=== PATIENT | female | born 1995 | race Caucasian/White ===

== ENCOUNTER 2022-08-24 18:45 | Emergency (ER) | payer OTHER ==
[~2022-08-24] VITALS: Ht 165.1 cm; Wt 104.3 kg
[2022-08-24] MEDS ORDERED: ALLERCLEAR10 MG PO (20:00)
== END 2022-08-24 20:11 | disposition home or self-care (01) ==
LOC: ER 18:45
DX: S61.211A Laceration without foreign body of left index finger without damage to nail, initial encounter (principal); W26.8XXA Contact with other sharp object(s), not elsewhere classified, initial encounter; Z79.899 Other long term (current) drug therapy
CPT/HCPCS: 12001; 99282

== ENCOUNTER 2023-01-25 15:44 | Inpatient (IN) | payer OTHER ==
[~2023-01-25] VITALS: Ht 165.1 cm; Wt 126.0 kg
[~2023-01-25 15:44] MED LIST: ALLERCLEAR10 MG PO
[2023-01-25 16:35] LABS: BASOPHILS ABSOLUTE AUTO 0.01 K/mm3 (0.00-0.23); BASOPHILS PERCENT AUTO 0 % (0-2); EOSINOPHILS ABSOLUTE AUTO 0.06 K/mm3 (0.00-0.68); EOSINOPHILS PERCENT AUTO 1 % (0-6); Hematocrit 40.3 % (33.0-51.0); Hemoglobin 13.6 g/dL (11.5-16.0); IMMATURE GRAN ABSOLUTE AUTO 0.01 K/mm3 (0.00-0.10); IMMATURE GRAN PERCENT AUTO 0 % (0-1); LYMPHOCYTES ABSOLUTE AUTO 1.37 K/mm3 (0.84-5.20); LYMPHOCYTES PERCENT AUTO 31 % (21-46); MONOCYTES ABSOLUTE AUTO 0.28 K/mm3 (0.16-1.47); MONOCYTES PERCENT AUTO 6 % (4-13); Mean Corpuscular HGB 30.2 pg (26.0-34.0); Mean Corpuscular HGB Conc 33.7 g/dL (31.5-36.5); Mean Corpuscular Volume 90 fL (80-100); Mean Platelet Volume 11.6 fL (9.1-12.4); NEUTROPHILS ABSOLUTE AUTO 2.63 K/mm3 (1.96-9.15); NEUTROPHILS PERCENT AUTO 60 % (41-73); RDW Coefficient Variation 14.9 % (11.7-14.2); RDW Standard Deviation 49.1 fL (35.1-46.3); White Blood Cell Count 4.36 K/mm3 (4.00-11.30)
[2023-01-25 16:50] LABS: Platelet Count 43 K/mm3 (150-400)
[2023-01-25 17:25] LABS: Albumin, Blood 3.9 g/dL (3.4-5.0); Bun/Creatinine Ratio 27.9 (12.0-20.0); Creatinine, Blood 0.61 mg/dL (0.40-1.00); Globulin, Blood 3.8 g/dL (2.2-4.0); Potassium, Blood 3.8 mmol/L (3.5-5.5); Total Protein, Blood 7.7 g/dL (6.4-8.2)
[2023-01-25] MEDS ORDERED: FLUVOXAMINE MA100 M3 PO (20:57)
[2023-01-25] MEDS ORDERED: BUTALB-ACETAMI1 EAC5 PO (20:58)
[2023-01-25 22:40] LABS: Influenza A, PCR NEGATIVE (NEGATIVE); Influenza B, PCR NEGATIVE (NEGATIVE); Resp Syncytial Virus, PCR NEGATIVE (NEGATIVE); SARS-Cov-2 (COVID-19) PCR, MMC NEGATIVE (NEGATIVE)
--- NOTE | 2023-01-26 05:11 | NUR ---
SHIFT NOTE REVIEVED PATIENT ALERT AND ORIENTED FROM ED, CALM AND COOPERATIVE WITH CARE. NO CARDIAC, REPIRATORY, SKIN, OR NEURO ISSUES NOTED. HERE FOR GI BLEED, NO BM SINCE ADMISSION TO THE FLOOR. CLEAR LIQUID DIET TO CONTINUE. GI CONSULT CALLED IN. IV INFUSING NS AT 75. WILL CONT TO MONITOR.
[2023-01-26 05:28] LABS: BASOPHILS PERCENT AUTO 0 % (0-2); EOSINOPHILS ABSOLUTE AUTO 0.02 K/mm3 (0.00-0.68); EOSINOPHILS PERCENT AUTO 1 % (0-6); Hematocrit 34.7 % (33.0-51.0); Hemoglobin 11.8 g/dL (11.5-16.0); IMMATURE GRAN ABSOLUTE AUTO 0.01 K/mm3 (0.00-0.10); IMMATURE GRAN PERCENT AUTO 0 % (0-1); LYMPHOCYTES ABSOLUTE AUTO 1.44 K/mm3 (0.84-5.20); LYMPHOCYTES PERCENT AUTO 34 % (21-46); MONOCYTES ABSOLUTE AUTO 0.29 K/mm3 (0.16-1.47); MONOCYTES PERCENT AUTO 7 % (4-13); Mean Corpuscular HGB 30.6 pg (26.0-34.0); Mean Corpuscular Volume 90 fL (80-100); Mean Platelet Volume 11.4 fL (9.1-12.4); NEUTROPHILS ABSOLUTE AUTO 2.46 K/mm3 (1.96-9.15); NEUTROPHILS PERCENT AUTO 58 % (41-73); RDW Coefficient Variation 14.8 % (11.7-14.2); RDW Standard Deviation 48.9 fL (35.1-46.3); Red Blood Cell Count 3.85 M/mm3 (3.80-5.20); White Blood Cell Count 4.22 K/mm3 (4.00-11.30)
[2023-01-26 05:50] LABS: Albumin, Blood 3.5 g/dL (3.4-5.0); Albumin/Globulin Ratio 1.1 (0.8-1.8); Bilirubin, Total 1.2 mg/dL (0.1-1.0); Bun/Creatinine Ratio 18.4 (12.0-20.0); Calcium, Blood 8.3 mg/dL (8.5-10.1); Creatinine, Blood 0.71 mg/dL (0.40-1.00); Globulin, Blood 3.3 g/dL (2.2-4.0); Potassium, Blood 3.4 mmol/L (3.5-5.5); Total Protein, Blood 6.8 g/dL (6.4-8.2)
[2023-01-26 06:18] LABS: Platelet Count 38 K/mm3 (150-400)
--- NOTE | 2023-01-26 15:26 | NUR ---
SHIFT SUMMARY PT AWAKE DURING SHIFT REPORT. PLEASANT AND CO-OP. UP INDEPENDENTLY IN RM AND TO BTHRM. PT REPORTED BM DURING SHIFT REPORT; STOOL IN TOILET BROWN WITH SM AMT OF DRK COLOR MIXED IN, POSSIBLY BLACK. PT REPORTED NO LONGER BLACK AND TARRY PREVIOUS. GI CONSULT ORDERED AND CALLED; SEE CHART. DR SANTANA TO SEE PT AFTER PROCEDURES THIS EVENING; PT INFORMED. DR OSMAN UPDATED AND AWARE. IVF'S INFUSING PER EMAR, PT NOW SL. PT'S SPOUSE IN THIS AM AND OFF AND ON THRU OUT THE DAY. NO C/O PAIN. DENIED FURTHER NEEDS AT THIS TIME. CALL LT IN REACH.
[2023-01-26 15:47] LABS: Hematocrit 33.9 % (33.0-51.0); Hemoglobin 11.7 g/dL (11.5-16.0)
--- NOTE | 2023-01-26 16:05 | NUR ---
DR SANTANA JUST IN TO SEE PT. PT TO GO DOWN FOR EGD SOON. PT AWARE, REPORTING NPO SINCE BEFORE LUNCH.
--- NOTE | 2023-01-26 17:04 | NUR ---
Patient up to Ambulate independently. Gait steady. Lungs clear T/O to Auscultation. Patient confirms NPO status and agrees with scheduled surgery. History, Chart, Medications and Allergies reviewed before start of procedure.Patient States Post-Procedure ride home has been arranged.
--- NOTE | 2023-01-26 17:38 | NUR ---
01/26/23 1738 Nadya Chaudhary History, Chart, Medications and Allergies reviewed before start of procedure. 3-LEAD EKG REVIEWED WITH PHYSICIAN PRIOR TO START OF PROCEDURE. MONITOR INTACT WITH CONTINUOUS PULSE OXIMETRY AND INTERMITTENT BP. PATIENT DETERMINED TO BE ASA APPROPRIATE FOR PROPOFOL SEDATION PRIOR TO START OF PROCEDURE BY , REVIEWED CASE WITH DR HARP WHO AGREES PT IS SAFE FOR NURSE SEDATION/ MALLAMPATI CLASS 2 AIRWAY: COMPLETE VISUALIZATION OF THE UVULA.
--- NOTE | 2023-01-27 06:10 | NUR ---
PATIET REMAINS ALERT AND ORIENTED X4, COOPERATIVE WITH CARE. PATIENT WAS ANGRY AND ANXIOUS AT START OF SHUFT, RE POTENTIAL DC. ASSURED PATIENT SHE MIRELLA NOT BE ISHCARDED UNTILL BE KNEW SHE WOUD BE SAFE. IV SL AND SNL. STAFF WILL CONT TO MONITOR.
[2023-01-27 06:15] LABS: Hematocrit 32.2 % (33.0-51.0)
[2023-01-27 06:40] LABS: International Normalized Ratio 1.12; Prothrombin Time Results 11.7 Sec (9.7-11.5)
[2023-01-27 06:48] LABS: Calcium, Blood 8.5 mg/dL (8.5-10.1); Creatinine, Blood 0.62 mg/dL (0.40-1.00); Potassium, Blood 3.9 mmol/L (3.5-5.5)
--- NOTE | 2023-01-27 07:25 | NUR ---
01/27/23 0725 Nadya Chaudhary History, Chart, Medications and Allergies reviewed before start of procedure. 3-LEAD EKG REVIEWED WITH PHYSICIAN PRIOR TO START OF PROCEDURE. MONITOR INTACT WITH CONTINUOUS PULSE OXIMETRY AND INTERMITTENT BP. O2 VIA N/C INTACT THROUGHOUT SEDATION/PROCEDURE. PATIENT DETERMINED TO BE ASA APPROPRIATE FOR PROPOFOL SEDATION PRIOR TO START OF PROCEDURE BY DR. SANTANA.
[2023-01-27 08:34] LABS: BASOPHILS ABSOLUTE AUTO 0.01 K/mm3 (0.00-0.23); BASOPHILS PERCENT AUTO 0 % (0-2); EOSINOPHILS ABSOLUTE AUTO 0.04 K/mm3 (0.00-0.68); EOSINOPHILS PERCENT AUTO 1 % (0-6); Hematocrit 32.1 % (33.0-51.0); Hemoglobin 11.1 g/dL (11.5-16.0); IMMATURE GRAN ABSOLUTE AUTO 0.04 K/mm3 (0.00-0.10); IMMATURE GRAN PERCENT AUTO 1 % (0-1); LYMPHOCYTES ABSOLUTE AUTO 1.28 K/mm3 (0.84-5.20); LYMPHOCYTES PERCENT AUTO 44 % (21-46); MONOCYTES PERCENT AUTO 7 % (4-13); Mean Corpuscular HGB Conc 34.6 g/dL (31.5-36.5); Mean Corpuscular Volume 90 fL (80-100); Mean Platelet Volume 12.9 fL (9.1-12.4); NEUTROPHILS ABSOLUTE AUTO 1.33 K/mm3 (1.96-9.15); NEUTROPHILS PERCENT AUTO 46 % (41-73); RDW Coefficient Variation 14.6 % (11.7-14.2); RDW Standard Deviation 48.3 fL (35.1-46.3); Red Blood Cell Count 3.58 M/mm3 (3.80-5.20)
[2023-01-27 08:37] LABS: Platelet Count 44 K/mm3 (150-400)
--- NOTE | 2023-01-27 17:29 | NUR ---
SHIFT SUMMARY PTN WENT FOR UPPER GI/BANDING THIS AM AND THEY WERE NOT ABLE TO PROCEED DUE TO FOOD IN THE STOMACH. THE PTN HAD BEEN NPO AFTER MIDNIGHT, BUT APPARENTLY DUE TO THE MEDICATION SHE IS ON, PARASTALSIS WAS SLOWED. PTN THIS SHIFT HAS BEEN ON FULL LIQUIDS, BUT WILL BE CLEARS 7 PM, THEN NPO AFTER. PTN BEING EXTREMELY CAUTIOUS THIS SHIFT IN PREPARATION. PROCEDURE SCHEDULED FOR 8:30 AM. FAMILY PRESENT MOST OF DAY. CONTINUE TO FOLLOW.
[2023-01-28 05:28] LABS: Hematocrit 32.6 % (33.0-51.0); Hemoglobin 11.2 g/dL (11.5-16.0); Mean Corpuscular HGB 30.8 pg (26.0-34.0); Mean Corpuscular HGB Conc 34.4 g/dL (31.5-36.5); Mean Corpuscular Volume 90 fL (80-100); RDW Coefficient Variation 14.4 % (11.7-14.2); RDW Standard Deviation 46.5 fL (35.1-46.3); Red Blood Cell Count 3.64 M/mm3 (3.80-5.20); White Blood Cell Count 2.65 K/mm3 (4.00-11.30)
--- NOTE | 2023-01-28 05:37 | NUR ---
PATIENT SLEPT THROUGH THE NIGHT, MADE NO C/O PAIN, OR DARK STOOLS. IV SANDOSTATIN INFUSING AT 25H, IVS WNL. NPO SINCE 1900 YESTERDAY IN PREPARATION FOR MORNING SURGERY. NO OTHER ISSUES TO REPORT.
[2023-01-28 06:22] LABS: Albumin, Blood 3.4 g/dL (3.4-5.0); Anion Gap 3 mmol/L (6-16); Blood Urea Nitrogen 6 mg/dL (8-24); Bun/Creatinine Ratio 9.2 (12.0-20.0); CO2, Blood 26 mmol/L (21-32); Calcium, Blood 8.6 mg/dL (8.5-10.1); Chloride, Blood 110 mmol/L (98-108); Creatinine, Blood 0.65 mg/dL (0.40-1.00); Glomerular Filtration Rate 124 (60-); Glucose, Blood 100 mg/dL (70-99); Magnesium, Blood 2.2 mg/dL (1.6-2.4); Potassium, Blood 3.5 mmol/L (3.5-5.5); Sodium, Blood 139 mmol/L (136-145)
[2023-01-28 07:32] LABS: Platelet Count 44 K/mm3 (150-400)
--- NOTE | 2023-01-28 08:17 | NUR ---
PT TO [facility] FROM MEDICAL FLOOR. SANDOSTATIN INFUSING ON ARRIVAL. + NPO. NO ACTIVE EMESIS. PT DENIES NEEDS. BIALTERAL 20 G NOTED TO AC'S. NSR NOTED ON MONITOR. VS c NORMAL LIMITS. STARTED ON LR PER ORDERS.
--- NOTE | 2023-01-28 09:26 | NUR ---
01/28/23 0926 Rai Urbina HISTORY, CHART, MEDICATIONS AND ALLERGIES REVIEWED BEFORE START OF PROCEDURE. PATIENT CONFIRMS NPO STATUS AND AGREES WITH SCHEDULED PROCEDURE. 3-LEAD EKG REVIEWED WITH PHYSICIAN PRIOR TO START OF PROCEDURE. MONITOR INTACT WITH CONTINUOUS PULSE OXIMETRY,CAPNOGRAPHY, 3-LEAD EKG, INTERMITTENT BP. SUPPLEMENTAL O2 TO BE TITRATED THROUGHOUT PROCEDURE TO MAINTAIN O2 SATURATION ABOVE 90%. PATIENT DETERMINED TO BE ASA APPROPRIATE FOR PROPOFOL SEDATION PRIOR TO START OF PROCEDURE BY DR. SANTANA.
--- NOTE | 2023-01-28 09:49 | NUR ---
DC'D RACT IV SITE DUE TO LEAKING.
--- NOTE | 2023-01-28 19:47 | NUR ---
SHIFT SUMMARY PTN HAD THE UPPER GI WITH BANDING TO VARICIES THIS AM. PTJody WAS DROWSY AFTER RETURNING. BY LUNCH SHE WAS AWAKE AND ABLE TO SWALLOW LIQUID WITHOUT DIFFICULTY. SHE ASKED TO ADVANCE DIET. CONTINUE OCTREATIDE DRIP. CONTINUE TO MONITOR.
--- NOTE | 2023-01-29 04:28 | NUR ---
END OF SHIFT NURSING REPORT - PM Patient is a 27 y/o female admitted for melena x2 days. She is AOX4, independent on daily ADL, and well informed about her health. 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 Continues on octreotide gtt at 25ml/hr and ceftriaxone coverage. Vitals remain WNL, no acute events through the shift, and declines pain. No active GI bleed noted. Am labs collected.
[2023-01-29 04:59] LABS: BASOPHILS PERCENT AUTO 0 % (0-2); EOSINOPHILS ABSOLUTE AUTO 0.02 K/mm3 (0.00-0.68); EOSINOPHILS PERCENT AUTO 1 % (0-6); Hematocrit 32.9 % (33.0-51.0); Hemoglobin 11.5 g/dL (11.5-16.0); IMMATURE GRAN PERCENT AUTO 0 % (0-1); LYMPHOCYTES ABSOLUTE AUTO 1.03 K/mm3 (0.84-5.20); LYMPHOCYTES PERCENT AUTO 39 % (21-46); MONOCYTES ABSOLUTE AUTO 0.18 K/mm3 (0.16-1.47); MONOCYTES PERCENT AUTO 7 % (4-13); Mean Corpuscular HGB 30.9 pg (26.0-34.0); Mean Corpuscular Volume 88 fL (80-100); Mean Platelet Volume 10.5 fL (9.1-12.4); NEUTROPHILS ABSOLUTE AUTO 1.42 K/mm3 (1.96-9.15); NEUTROPHILS PERCENT AUTO 54 % (41-73); RDW Coefficient Variation 14.6 % (11.7-14.2); RDW Standard Deviation 46.6 fL (35.1-46.3); Red Blood Cell Count 3.72 M/mm3 (3.80-5.20); White Blood Cell Count 2.65 K/mm3 (4.00-11.30)
[2023-01-29 05:09] LABS: HBSAG SCREEN Negative (Negative); HCV ANTIBODY Non Reactive (Non Reactive); HEP B CORE AB, TOT Negative (Negative)
[2023-01-29 05:18] LABS: Albumin, Blood 3.5 g/dL (3.4-5.0); Albumin/Globulin Ratio 0.9 (0.8-1.8); Bilirubin, Total 0.8 mg/dL (0.1-1.0); Bun/Creatinine Ratio 8.9 (12.0-20.0); Calcium, Blood 8.4 mg/dL (8.5-10.1); Creatinine, Blood 0.67 mg/dL (0.40-1.00); Globulin, Blood 3.8 g/dL (2.2-4.0); Potassium, Blood 3.8 mmol/L (3.5-5.5); Total Protein, Blood 7.3 g/dL (6.4-8.2)
[2023-01-29 05:29] LABS: Platelet Count 41 K/mm3 (150-400)
--- NOTE | 2023-01-29 08:00 | NUR ---
pt sitting up in a chair working on her computer, a/ox3, pleasant and cooperative with care, follows commands well, denies pain, states she has just a little cramp at the top of her stomach every time she eats but is brief, otherwise feels good, lungs are clear t/o, resp even and unlabored, no cough noted, hrr, no edema noted, ppp+2, cap refill <3s sec, vs stable, afebrile, piv site x2 sites are clear and patent, btx4, abd flat soft nontender, voids without diff, skin c/w/d, maew, up ad janessa, abbie, call light in reach.
--- NOTE | 2023-01-29 18:05 | NUR ---
pt doing well, feels good, states she is going home tomorrow. spouce was at bedside most of the day, no acute changes or needs, call light in reach.
[2023-01-30 07:12] LABS: BASOPHILS PERCENT AUTO 0 % (0-2); EOSINOPHILS ABSOLUTE AUTO 0.07 K/mm3 (0.00-0.68); EOSINOPHILS PERCENT AUTO 2 % (0-6); Hematocrit 34.9 % (33.0-51.0); Hemoglobin 11.9 g/dL (11.5-16.0); IMMATURE GRAN ABSOLUTE AUTO 0.01 K/mm3 (0.00-0.10); IMMATURE GRAN PERCENT AUTO 0 % (0-1); LYMPHOCYTES ABSOLUTE AUTO 1.13 K/mm3 (0.84-5.20); LYMPHOCYTES PERCENT AUTO 28 % (21-46); MONOCYTES ABSOLUTE AUTO 0.32 K/mm3 (0.16-1.47); MONOCYTES PERCENT AUTO 8 % (4-13); Mean Corpuscular HGB 30.6 pg (26.0-34.0); Mean Corpuscular HGB Conc 34.1 g/dL (31.5-36.5); Mean Corpuscular Volume 90 fL (80-100); Mean Platelet Volume 11.3 fL (9.1-12.4); NEUTROPHILS ABSOLUTE AUTO 2.51 K/mm3 (1.96-9.15); NEUTROPHILS PERCENT AUTO 62 % (41-73); RDW Coefficient Variation 14.8 % (11.7-14.2); RDW Standard Deviation 48.3 fL (35.1-46.3); Red Blood Cell Count 3.89 M/mm3 (3.80-5.20); White Blood Cell Count 4.04 K/mm3 (4.00-11.30)
[2023-01-30 07:18] LABS: Platelet Count 44 K/mm3 (150-400)
[2023-01-30 07:28] LABS: Albumin, Blood 3.6 g/dL (3.4-5.0); Bilirubin, Total 0.9 mg/dL (0.1-1.0); Bun/Creatinine Ratio 9.9 (12.0-20.0); Calcium, Blood 8.6 mg/dL (8.5-10.1); Creatinine, Blood 0.71 mg/dL (0.40-1.00); Globulin, Blood 3.6 g/dL (2.2-4.0); Potassium, Blood 4.3 mmol/L (3.5-5.5); Total Protein, Blood 7.2 g/dL (6.4-8.2)
[2023-01-30] MEDS ORDERED: PANT20 PO (12:03)
[2023-01-30] MEDS ORDERED: PROP10 PO (12:04)
[2023-01-30] MEDS ORDERED: SULTRIDS PO (12:08)
== END 2023-01-30 12:20 | disposition home or self-care (01) | DRG 432 ==
LOC: ER 15:44 → MEDS 15:45
PROVIDERS: Emergency Medicine; Family Medicine; Internal Medicine; Internal Medicine Gastroenterology; Physician Assistant; ADMIT Internal Medicine
PROC: 30233R1 Transfusion of Nonautologous Platelets into Peripheral Vein, Percutaneous Approach (ICD-10-PCS; 2023-01-25)
PROC: 0DJ08ZZ Inspection of Upper Intestinal Tract, Via Natural or Artificial Opening Endoscopic (ICD-10-PCS; principal; 2023-01-26 16:15)
PROC: 0DJ08ZZ Inspection of Upper Intestinal Tract, Via Natural or Artificial Opening Endoscopic (ICD-10-PCS; 2023-01-27)
PROC: 06L38CZ Occlusion of Esophageal Vein with Extraluminal Device, Via Natural or Artificial Opening Endoscopic (ICD-10-PCS; 2023-01-28)
DX: K74.60 Unspecified cirrhosis of liver (principal); I85.11 Secondary esophageal varices with bleeding; C91.01 Acute lymphoblastic leukemia, in remission; D69.3 Immune thrombocytopenic purpura; K76.6 Portal hypertension; D61.818 Other pancytopenia; Z68.42 Body mass index [BMI] 45.0-49.9, adult; E87.6 Hypokalemia; K75.81 Nonalcoholic steatohepatitis (NASH); F41.9 Anxiety disorder, unspecified; F32.A Depression, unspecified; F42.9 Obsessive-compulsive disorder, unspecified; D73.1 Hypersplenism; T45.1X5A Adverse effect of antineoplastic and immunosuppressive drugs, initial encounter; E66.9 Obesity, unspecified; I86.4 Gastric varices; K31.89 Other diseases of stomach and duodenum; Z20.822 Contact with and (suspected) exposure to COVID-19; Z79.899 Other long term (current) drug therapy; Z98.890 Other specified postprocedural states; Z92.21 Personal history of antineoplastic chemotherapy
CPT/HCPCS: 0241U; 36415; 80048; 80053; 80069; 82105; 82272; 83735; 85014; 85018; 85025; 85027; 85610; 86317; 86704; 86708; 86803; 86850; 86900; 86901; 87340; 93306; 96374; 96375; 99285-25; A9270; C9113; G0378; J0171; J0696; J2001; J2250; J2354; J2405; J2704; J2765; J7030; J7050; J7120; P9035; P9053

== ENCOUNTER 2023-02-23 08:33 | Day surgery (SDC) | payer OTHER ==
[~2023-02-23] VITALS: Ht 165.1 cm; Wt 116.0 kg
[~2023-02-23 08:33] MED LIST changes: +BUTALB-ACETAMI1 EAC5 PO; +FLUVOXAMINE MA100 M3 PO; +PANT20 PO; +PROP10 PO; +SULTRIDS PO
--- NOTE | 2023-02-23 10:22 | NUR ---
02/23/23 1022 Violet Weeks MONITOR INTACT WITH CONTINUOUS PULSE OXIMETRY, CONTINUOUS END TITAL CO2, AND INTERMITTENT BLOOD PRESSURE. History, Chart, Medications and Allergies reviewed before start of procedure. O2 VIA N/C INTACT THROUGHOUT SEDATION/PROCEDURE.Bite Block Placed See Anesthesia record.
--- NOTE | 2023-02-23 10:48 | NUR ---
REPORT RECEIVED FROM NORA MONTAGUE RN. VSS. PT ABLE TO REPOSITION SELF IN BED. PT REQUESTING PO FLUIDS AND FOOD FOR NAUSEA. PT DENIES OTHER COMPLAINTS AT THIS TIME. AT BEDSIDE.
--- NOTE | 2023-02-23 11:10 | NUR ---
Patient up to Ambulate independently. Gait steady. VSS. Discharge instructions reviewed with patient. Patient verbalizes understanding. Copy given to patient to take home. Patient States Post-Procedure ride home has been arranged. Discharged via wheelchair to private car for ride home. PT BELONGINGS RETURNED TO PT.
== END 2023-02-23 22:44 | disposition home or self-care (01) ==
LOC: ORSCMMR 08:33 → ORD 10:00 → ORSCMMR 10:00
PROVIDERS: Internal Medicine Gastroenterology
PROC: 0DJ08ZZ Inspection of Upper Intestinal Tract, Via Natural or Artificial Opening Endoscopic (ICD-10-PCS; principal; 2023-02-23 10:00)
DX: I85.00 Esophageal varices without bleeding (principal); K76.6 Portal hypertension; K31.89 Other diseases of stomach and duodenum; G47.33 Obstructive sleep apnea (adult) (pediatric); K74.60 Unspecified cirrhosis of liver; K75.81 Nonalcoholic steatohepatitis (NASH); K21.9 Gastro-esophageal reflux disease without esophagitis; Z79.899 Other long term (current) drug therapy
CPT/HCPCS: A9270; J2250; J2704; J7120

== ENCOUNTER → 2023-03-15 | Outpatient (CLI) | payer OTHER | LOC: LAB SHORT 13:04 | DX: R30.0 Dysuria (principal) | CPT/HCPCS: 87077; 87086; 87186 ==

== ENCOUNTER 2023-08-19 07:35 | Emergency (ER) | payer OTHER ==
[~2023-08-19] VITALS: Ht 165.1 cm; Wt 115.7 kg
[2023-08-19 09:28] LABS: Source, Urine Clean Catch
[2023-08-19 09:45] LABS: Appearance, Urine Clear (Clear); Bilirubin, Urine Neg (Neg); Blood, Urine 3+ (Neg); Color, Urine Amber (P-Yellow); Glucose Qualitative, Urine Neg (Neg); Ketones, Urine Neg (Neg); Leukocyte Esterase, Urine Neg (Neg); Nitrite, Urine Neg (Neg); Protein, Urine Neg (Neg); Urobilinogen, Urine NORM (Normal)
[2023-08-19 10:01] LABS: Albumin, Blood 3.8 g/dL (3.4-5.0); Bilirubin, Total 0.6 mg/dL (0.1-1.0); Bun/Creatinine Ratio 15.4 (12.0-20.0); Calcium, Blood 8.6 mg/dL (8.5-10.1); Creatinine, Blood 0.71 mg/dL (0.40-1.00); Globulin, Blood 3.8 g/dL (2.2-4.0); Potassium, Blood 4.1 mmol/L (3.5-5.5); Total Protein, Blood 7.6 g/dL (6.4-8.2)
[2023-08-19 10:01] LABS: Mucus Light (0-Heavy); Squamous Epithelial Cells Few /hpf (Few); White Blood Cells, Urine Not Seen /hpf (0-5)
[2023-08-19 10:02] LABS: Amorphous Light (0-Heavy); Bacteria Rare /hpf
[2023-08-19 10:06] LABS: BASOPHILS ABSOLUTE AUTO 0.01 K/mm3 (0.00-0.23); BASOPHILS PERCENT AUTO 0 % (0-2); EOSINOPHILS ABSOLUTE AUTO 0.06 K/mm3 (0.00-0.68); EOSINOPHILS PERCENT AUTO 1 % (0-6); Hematocrit 37.8 % (33.0-51.0); IMMATURE GRAN ABSOLUTE AUTO 0.02 K/mm3 (0.00-0.10); IMMATURE GRAN PERCENT AUTO 1 % (0-1); LYMPHOCYTES ABSOLUTE AUTO 1.08 K/mm3 (0.84-5.20); LYMPHOCYTES PERCENT AUTO 24 % (21-46); MONOCYTES ABSOLUTE AUTO 0.28 K/mm3 (0.16-1.47); MONOCYTES PERCENT AUTO 6 % (4-13); Mean Corpuscular HGB 30.5 pg (26.0-34.0); Mean Corpuscular HGB Conc 34.4 g/dL (31.5-36.5); Mean Corpuscular Volume 89 fL (80-100); NEUTROPHILS ABSOLUTE AUTO 2.99 K/mm3 (1.96-9.15); NEUTROPHILS PERCENT AUTO 67 % (41-73); RDW Coefficient Variation 15.1 % (11.7-14.2); RDW Standard Deviation 49.2 fL (35.1-46.3); Red Blood Cell Count 4.26 M/mm3 (3.80-5.20); White Blood Cell Count 4.44 K/mm3 (4.00-11.30)
[2023-08-19 10:11] LABS: Mean Platelet Volume 10.7 fL (9.1-12.4); Platelet Count 48 K/mm3 (150-400)
[2023-08-19 10:40] VITALS: BP 123/71
[2023-08-19] MEDS ORDERED: CARVEDILOL3.125 MG PO (10:48)
[2023-08-19] MEDS ORDERED: AMPDEX10 (10:49)
[2023-08-19] MEDS ORDERED: ZEBUTAL 50-3251 EAC1 (10:49)
== END 2023-08-19 11:04 | disposition home or self-care (01) ==
LOC: ER 07:35
PROVIDERS: Student in an Organized Health Care Education/Training Program
DX: N92.0 Excessive and frequent menstruation with regular cycle (principal); D69.6 Thrombocytopenia, unspecified; Z79.899 Other long term (current) drug therapy
CPT/HCPCS: 80053; 81001; 81025; 85025; 85730; 86850; 86900; 86901; 99284

== ENCOUNTER 2023-10-01 00:14 | Emergency (ER) | payer OTHER ==
[~2023-10-01] VITALS: Ht 165.1 cm; Wt 117.9 kg
[~2023-10-01 00:14] MED LIST changes: +AMPDEX10; +CARVEDILOL3.125 MG PO; +ZEBUTAL 50-3251 EAC1
[2023-10-01] MEDS ORDERED: OXYC5 PO (02:35)
[2023-10-01] MEDS ORDERED: Robaxin750 MG PO (04:05)
[2023-10-01 04:12] VITALS: BP 122/76
== END 2023-10-01 04:39 | disposition home or self-care (01) ==
LOC: ER 00:14
DX: M76.32 Iliotibial band syndrome, left leg (principal); Z79.899 Other long term (current) drug therapy
CPT/HCPCS: 73502; 81025; 96372; 99283-25; A9270; J1885

== ENCOUNTER → 2023-11-23 | Outpatient (CLI) | payer OTHER ==
[~2023-11-23] MED LIST changes: +OXYC5 PO; +Robaxin750 MG PO
[2023-11-23 19:15] LABS: Source, Urine Clean Catch
[2023-11-23 20:05] LABS: Bacteria Many /hpf; Hyaline Casts 0-2 /lpf (0-2); Renal Epithelial Rare /hpf (0-Rare); Squamous Epithelial Cells Mod /hpf (Few); Transitional Epithelial Cells Few /hpf (0-Rare); White Blood Cells, Urine 50-100 /hpf (0-5)
== END ==
LOC: LAB SHORT 19:13 → LAB 19:13
PROVIDERS: Family Medicine
DX: N39.0 Urinary tract infection, site not specified (principal)
CPT/HCPCS: 81015; 87077; 87086; 87186

== ENCOUNTER 2024-10-10 08:33 | Day surgery (SDC) | payer OTHER ==
[2024-10-09 14:58] VITALS: BP 124/62
[2024-10-09 15:59] LABS: Hematocrit 21.4 % (33.0-51.0); Hemoglobin 7.3 g/dL (11.5-16.0); Mean Corpuscular HGB 34.3 pg (26.0-34.0); Mean Corpuscular HGB Conc 34.1 g/dL (31.5-36.5); Mean Corpuscular Volume 101 fL (80-100); RDW Standard Deviation 80.2 fL (35.1-46.3); Red Blood Cell Count 2.13 M/mm3 (3.80-5.20)
[2024-10-09 16:20] LABS: Albumin, Blood 3.6 g/dL (3.4-5.0); Albumin/Globulin Ratio 1.5 (0.8-1.8); Bun/Creatinine Ratio 13.5 (12.0-20.0); Calcium, Blood 8.4 mg/dL (8.5-10.1); Creatinine, Blood 0.52 mg/dL (0.40-1.00); Globulin, Blood 2.4 g/dL (2.2-4.0); Potassium, Blood 3.5 mmol/L (3.5-5.5)
[2024-10-09 16:25] LABS: BASOPHILS PERCENT AUTO 0 % (0-2); EOSINOPHILS ABSOLUTE AUTO 0.05 K/mm3 (0.00-0.68); EOSINOPHILS PERCENT AUTO 7 % (0-6); IMMATURE GRAN PERCENT AUTO 0 % (0-1); LYMPHOCYTES ABSOLUTE AUTO 0.06 K/mm3 (0.84-5.20); LYMPHOCYTES PERCENT AUTO 9 % (21-46); MONOCYTES ABSOLUTE AUTO 0.03 K/mm3 (0.16-1.47); MONOCYTES PERCENT AUTO 4 % (4-13); NEUTROPHILS ABSOLUTE AUTO 0.57 K/mm3 (1.96-9.15); NEUTROPHILS PERCENT AUTO 80 % (41-73)
[2024-10-09 16:27] LABS: Platelet Count 8 K/mm3 (150-400); White Blood Cell Count 0.71 K/mm3 (4.00-11.30)
[~2024-10-10 08:33] MED LIST changes: -AMPDEX10; +AMPDEX10 PO; +CARV6.25 PO; -CARVEDILOL3.125 MG PO; +CELE100 PO; +Inderal 20 mg T20 MG PO; +PROMACTA PO; +TRAM50 PO; +[UNRECOGNIZED DRUG - OTHER]
[2024-10-10] MEDS ORDERED: NS 250 ML IV SCH (14:25)
[2024-10-10 16:24] VITALS: BP 107/64
[2024-10-10 16:41] VITALS: BP 101/61
[2024-10-10 17:40] VITALS: BP 105/65
== END 2024-10-10 23:00 ==
LOC: ATC 08:33
PROVIDERS: Nurse Practitioner
DX: C91.02 Acute lymphoblastic leukemia, in relapse (principal); D61.818 Other pancytopenia; F32.A Depression, unspecified; K21.9 Gastro-esophageal reflux disease without esophagitis
CPT/HCPCS: 36430; 36592; 80053; 85025; 86900; 86901; J7050; P9035

== ENCOUNTER 2024-10-15 00:28 | Day surgery (SDC) | payer OTHER ==
[2024-10-13 08:37] VITALS: BP 125/62
[2024-10-13 09:03] LABS: Hematocrit 19.2 % (33.0-51.0); Hemoglobin 6.5 g/dL (11.5-16.0); Mean Corpuscular HGB 33.5 pg (26.0-34.0); Mean Corpuscular HGB Conc 33.9 g/dL (31.5-36.5); Mean Corpuscular Volume 99 fL (80-100); RDW Coefficient Variation 21.3 % (11.7-14.2); RDW Standard Deviation 75.8 fL (35.1-46.3); Red Blood Cell Count 1.94 M/mm3 (3.80-5.20)
[2024-10-13 09:07] LABS: BASOPHILS PERCENT AUTO 0 % (0-2); EOSINOPHILS ABSOLUTE AUTO 0.05 K/mm3 (0.00-0.68); EOSINOPHILS PERCENT AUTO 12 % (0-6); IMMATURE GRAN PERCENT AUTO 0 % (0-1); LYMPHOCYTES ABSOLUTE AUTO 0.04 K/mm3 (0.84-5.20); LYMPHOCYTES PERCENT AUTO 9 % (21-46); MONOCYTES ABSOLUTE AUTO 0.04 K/mm3 (0.16-1.47); MONOCYTES PERCENT AUTO 9 % (4-13); NEUTROPHILS PERCENT AUTO 70 % (41-73)
[2024-10-13 09:10] LABS: Platelet Count 8 K/mm3 (150-400); White Blood Cell Count 0.43 K/mm3 (4.00-11.30)
[2024-10-13 09:22] LABS: Albumin, Blood 3.4 g/dL (3.4-5.0); Albumin/Globulin Ratio 1.3 (0.8-1.8); Bilirubin, Total 1.6 mg/dL (0.1-1.0); Bun/Creatinine Ratio 11.3 (12.0-20.0); Calcium, Blood 8.4 mg/dL (8.5-10.1); Creatinine, Blood 0.53 mg/dL (0.40-1.00); Globulin, Blood 2.7 g/dL (2.2-4.0); Potassium, Blood 3.9 mmol/L (3.5-5.5); Total Protein, Blood 6.1 g/dL (6.4-8.2)
[2024-10-13 13:42] VITALS: BP 118/64
[2024-10-13 13:43] VITALS: BP 118/64
[2024-10-13 14:04] VITALS: BP 104/65
[2024-10-13 15:08] VITALS: BP 107/56
[~2024-10-15 00:28] MED LIST changes: +NS 250 ML IV SCH
[2024-10-15] MEDS ORDERED: NS 250 ML IV SCH (07:15)
[2024-10-15 15:57] VITALS: BP 134/73
[2024-10-15 16:17] VITALS: BP 103/65
[2024-10-15 17:19] VITALS: BP 105/66
[2024-10-15 18:18] LABS: Hemoglobin 7.2 g/dL (11.5-16.0); Mean Corpuscular HGB 33.5 pg (26.0-34.0); Mean Corpuscular HGB Conc 34.3 g/dL (31.5-36.5); Mean Corpuscular Volume 98 fL (80-100); RDW Coefficient Variation 20.5 % (11.7-14.2); RDW Standard Deviation 72.4 fL (35.1-46.3); Red Blood Cell Count 2.15 M/mm3 (3.80-5.20)
[2024-10-15 18:35] LABS: Albumin, Blood 3.3 g/dL (3.4-5.0); Albumin/Globulin Ratio 1.2 (0.8-1.8); Bun/Creatinine Ratio 20.1 (12.0-20.0); Calcium, Blood 8.2 mg/dL (8.5-10.1); Creatinine, Blood 0.45 mg/dL (0.40-1.00); Globulin, Blood 2.8 g/dL (2.2-4.0); Potassium, Blood 3.8 mmol/L (3.5-5.5); Total Protein, Blood 6.1 g/dL (6.4-8.2)
[2024-10-15 18:40] LABS: IMMATURE GRAN PERCENT AUTO 0 % (0-1); White Blood Cell Count 0.46 K/mm3 (4.00-11.30)
[2024-10-15 18:41] LABS: Platelet Count 9 K/mm3 (150-400)
[2024-10-15 18:42] LABS: BASOPHILS PERCENT MAN 0 % (0-2); EOSINOPHILS ABSOLUTE MAN 0.01 K/mm3 (0.00-0.68); EOSINOPHILS PERCENT MAN 4 % (0-6); LYMPHOCYTES ABSOLUTE MAN 0.05 K/mm3 (0.84-5.20); LYMPHOCYTES PERCENT MAN 12 % (21-46); MONOCYTES ABSOLUTE MAN 0.05 K/mm3 (0.16-1.47); MONOCYTES PERCENT MAN 12 % (4-13); NEUTROPHILS ABSOLUTE MAN 0.33 K/mm3 (1.96-9.15); SEG NEUTROPHILS PERCENT MAN 72 % (41-73); TOTAL CELLS COUNTED 25
== END 2024-10-15 18:07 | disposition home or self-care (01) ==
LOC: ATC 00:28
PROVIDERS: Nurse Practitioner
DX: C91.02 Acute lymphoblastic leukemia, in relapse (principal); D61.818 Other pancytopenia; D64.9 Anemia, unspecified; G47.30 Sleep apnea, unspecified; Z88.8 Allergy status to other drugs, medicaments and biological substances; Z79.899 Other long term (current) drug therapy
CPT/HCPCS: 36430; 36592; 80053; 85025; 86850; 86900; 86901; 86920; 86922; J7050; P9016; P9035

== ENCOUNTER 2024-10-21 07:07 | Day surgery (SDC) | payer OTHER ==
[2024-10-20 14:45] VITALS: BP 135/70
[2024-10-20 15:58] LABS: Hemoglobin 8.4 g/dL (11.5-16.0); Mean Corpuscular HGB 32.9 pg (26.0-34.0); Mean Corpuscular HGB Conc 33.6 g/dL (31.5-36.5); Mean Corpuscular Volume 98 fL (80-100); RDW Coefficient Variation 20.4 % (11.7-14.2); RDW Standard Deviation 73.4 fL (35.1-46.3); Red Blood Cell Count 2.55 M/mm3 (3.80-5.20)
[2024-10-20 16:03] LABS: BASOPHILS PERCENT AUTO 0 % (0-2); EOSINOPHILS ABSOLUTE AUTO 0.08 K/mm3 (0.00-0.68); EOSINOPHILS PERCENT AUTO 15 % (0-6); IMMATURE GRAN ABSOLUTE AUTO 0.01 K/mm3 (0.00-0.10); IMMATURE GRAN PERCENT AUTO 2 % (0-1); LYMPHOCYTES ABSOLUTE AUTO 0.04 K/mm3 (0.84-5.20); LYMPHOCYTES PERCENT AUTO 8 % (21-46); MONOCYTES ABSOLUTE AUTO 0.03 K/mm3 (0.16-1.47); MONOCYTES PERCENT AUTO 6 % (4-13); NEUTROPHILS ABSOLUTE AUTO 0.37 K/mm3 (1.96-9.15); NEUTROPHILS PERCENT AUTO 70 % (41-73); Platelet Count 8 K/mm3 (150-400); White Blood Cell Count 0.53 K/mm3 (4.00-11.30)
[2024-10-20 16:22] LABS: Albumin, Blood 3.6 g/dL (3.4-5.0); Albumin/Globulin Ratio 1.2 (0.8-1.8); Bilirubin, Total 2.7 mg/dL (0.1-1.0); Bun/Creatinine Ratio 19.8 (12.0-20.0); Calcium, Blood 8.6 mg/dL (8.5-10.1); Creatinine, Blood 0.5 mg/dL (0.40-1.00); Globulin, Blood 2.9 g/dL (2.2-4.0); Potassium, Blood 3.4 mmol/L (3.5-5.5); Total Protein, Blood 6.5 g/dL (6.4-8.2)
[~2024-10-21 07:07] MED LIST changes: -NS 250 ML IV SCH
[2024-10-21] MEDS ORDERED: NS 250 ML IV SCH (15:00)
[2024-10-21 15:19] VITALS: BP 86/77
[2024-10-21 15:42] VITALS: BP 111/73
[2024-10-21 16:36] VITALS: BP 118/70
== END 2024-10-21 16:39 | disposition home or self-care (01) ==
LOC: ATC 07:07
PROVIDERS: Nurse Practitioner
DX: C91.02 Acute lymphoblastic leukemia, in relapse (principal); D61.818 Other pancytopenia; F32.9 Major depressive disorder, single episode, unspecified; K21.9 Gastro-esophageal reflux disease without esophagitis; Z88.8 Allergy status to other drugs, medicaments and biological substances
CPT/HCPCS: 36430; 36592; 80053; 85025; 86900; 86901; J7050; P9035

== ENCOUNTER 2024-10-24 05:03 | Day surgery (SDC) | payer OTHER ==
[2024-10-23 09:35] VITALS: BP 121/74
[2024-10-23 11:07] LABS: Hematocrit 21.4 % (33.0-51.0); Hemoglobin 7.2 g/dL (11.5-16.0); Mean Corpuscular HGB 32.7 pg (26.0-34.0); Mean Corpuscular HGB Conc 33.6 g/dL (31.5-36.5); Mean Corpuscular Volume 97 fL (80-100); RDW Coefficient Variation 20.9 % (11.7-14.2)
[2024-10-23 11:20] LABS: Platelet Count 9 K/mm3 (150-400); White Blood Cell Count 0.98 K/mm3 (4.00-11.30)
[2024-10-23 11:32] LABS: Albumin, Blood 3.5 g/dL (3.4-5.0); Albumin/Globulin Ratio 1.3 (0.8-1.8); Bilirubin, Total 2.5 mg/dL (0.1-1.0); Bun/Creatinine Ratio 15.2 (12.0-20.0); Calcium, Blood 8.8 mg/dL (8.5-10.1); Creatinine, Blood 0.46 mg/dL (0.40-1.00); Globulin, Blood 2.6 g/dL (2.2-4.0); Potassium, Blood 3.6 mmol/L (3.5-5.5); Total Protein, Blood 6.1 g/dL (6.4-8.2)
[2024-10-23 12:04] LABS: BAND PERCENT MAN 19 % (0-8); BASOPHILS PERCENT MAN 0 % (0-2); EOSINOPHILS ABSOLUTE MAN 0.05 K/mm3 (0.00-0.68); EOSINOPHILS PERCENT MAN 6 % (0-6); LYMPHOCYTES ABSOLUTE MAN 0.02 K/mm3 (0.84-5.20); LYMPHOCYTES PERCENT MAN 3 % (21-46); METAMYELOCYTE PERCENT MAN 1 % (0-0); MONOCYTES ABSOLUTE MAN 0.03 K/mm3 (0.16-1.47); MONOCYTES PERCENT MAN 4 % (4-13); MYELOCYTE PERCENT MAN 1 % (0-0); NEUTROPHILS ABSOLUTE MAN 0.83 K/mm3 (1.96-9.15); SEG NEUTROPHILS PERCENT MAN 66 % (41-73); TOTAL CELLS COUNTED 100
[~2024-10-24 05:03] MED LIST changes: +DiphenhydrAMINE HCL 25 MG Cap PO SCH; +NS 250 ML IV SCH
[2024-10-24] MEDS ORDERED: NS 250 ML IV SCH (06:50)
[2024-10-24] MEDS ORDERED: DiphenhydrAMINE HCL 25 MG Cap PO SCH (10:15)
[2024-10-24 10:24] VITALS: BP 121/70
[2024-10-24 10:44] VITALS: BP 111/65
[2024-10-24 11:39] VITALS: BP 117/69
== END 2024-10-24 11:39 | disposition home or self-care (01) ==
LOC: ATC 05:03
PROVIDERS: Nurse Practitioner
DX: C91.02 Acute lymphoblastic leukemia, in relapse (principal); D61.818 Other pancytopenia; K21.9 Gastro-esophageal reflux disease without esophagitis; F42.9 Obsessive-compulsive disorder, unspecified; Z79.52 Long term (current) use of systemic steroids; Z79.899 Other long term (current) drug therapy; Z88.8 Allergy status to other drugs, medicaments and biological substances
CPT/HCPCS: 36430; 36592; 80053; 85025; 86900; 86901; A9270; J7050; P9035

== ENCOUNTER 2024-10-27 03:50 | Day surgery (SDC) | payer OTHER ==
[~2024-10-27 03:50] MED LIST changes: -DiphenhydrAMINE HCL 25 MG Cap PO SCH; -NS 250 ML IV SCH
[2024-10-27 14:36] VITALS: BP 119/69
[2024-10-27 15:52] LABS: Hematocrit 23.2 % (33.0-51.0); Mean Corpuscular HGB 34.3 pg (26.0-34.0); Mean Corpuscular HGB Conc 34.5 g/dL (31.5-36.5); Mean Corpuscular Volume 100 fL (80-100); RDW Coefficient Variation 21.7 % (11.7-14.2); Red Blood Cell Count 2.33 M/mm3 (3.80-5.20); White Blood Cell Count 1.51 K/mm3 (4.00-11.30)
[2024-10-27 15:58] LABS: Platelet Count 11 K/mm3 (150-400)
[2024-10-27 16:21] LABS: BASOPHILS PERCENT MAN 0 % (0-2); EOSINOPHILS ABSOLUTE MAN 0.24 K/mm3 (0.00-0.68); EOSINOPHILS PERCENT MAN 16 % (0-6); LYMPHOCYTES ABSOLUTE MAN 0.19 K/mm3 (0.84-5.20); LYMPHOCYTES PERCENT MAN 13 % (21-46); MONOCYTES ABSOLUTE MAN 0.04 K/mm3 (0.16-1.47); MONOCYTES PERCENT MAN 3 % (4-13); NEUTROPHILS ABSOLUTE MAN 1.02 K/mm3 (1.96-9.15); SEG NEUTROPHILS PERCENT MAN 68 % (41-73); TOTAL CELLS COUNTED 100
[2024-10-27 16:42] LABS: Albumin, Blood 3.5 g/dL (3.4-5.0); Albumin/Globulin Ratio 1.3 (0.8-1.8); Bilirubin, Total 2.2 mg/dL (0.1-1.0); Bun/Creatinine Ratio 16.9 (12.0-20.0); Calcium, Blood 8.6 mg/dL (8.5-10.1); Creatinine, Blood 0.47 mg/dL (0.40-1.00); Globulin, Blood 2.7 g/dL (2.2-4.0); Potassium, Blood 3.4 mmol/L (3.5-5.5); Total Protein, Blood 6.2 g/dL (6.4-8.2)
== END 2024-10-27 14:53 | disposition home or self-care (01) ==
LOC: ATC 03:50
PROVIDERS: Nurse Practitioner
DX: C91.02 Acute lymphoblastic leukemia, in relapse (principal); K21.9 Gastro-esophageal reflux disease without esophagitis; F42.9 Obsessive-compulsive disorder, unspecified; G43.909 Migraine, unspecified, not intractable, without status migrainosus; Z79.899 Other long term (current) drug therapy; Z88.8 Allergy status to other drugs, medicaments and biological substances
CPT/HCPCS: 36592; 80053; 85025

== ENCOUNTER 2024-10-31 08:55 | Day surgery (SDC) | payer OTHER ==
[2024-10-30 09:28] VITALS: BP 128/73
[2024-10-30 10:18] LABS: BASOPHILS PERCENT AUTO 0 % (0-2); EOSINOPHILS ABSOLUTE AUTO 0.18 K/mm3 (0.00-0.68); EOSINOPHILS PERCENT AUTO 17 % (0-6); Hematocrit 20.7 % (33.0-51.0); Hemoglobin 7.1 g/dL (11.5-16.0); IMMATURE GRAN ABSOLUTE AUTO 0.01 K/mm3 (0.00-0.10); IMMATURE GRAN PERCENT AUTO 1 % (0-1); LYMPHOCYTES ABSOLUTE AUTO 0.08 K/mm3 (0.84-5.20); LYMPHOCYTES PERCENT AUTO 7 % (21-46); MONOCYTES ABSOLUTE AUTO 0.07 K/mm3 (0.16-1.47); MONOCYTES PERCENT AUTO 6 % (4-13); Mean Corpuscular HGB Conc 34.3 g/dL (31.5-36.5); Mean Corpuscular Volume 99 fL (80-100); NEUTROPHILS ABSOLUTE AUTO 0.75 K/mm3 (1.96-9.15); NEUTROPHILS PERCENT AUTO 69 % (41-73); RDW Coefficient Variation 21.2 % (11.7-14.2); RDW Standard Deviation 74.4 fL (35.1-46.3); Red Blood Cell Count 2.09 M/mm3 (3.80-5.20); White Blood Cell Count 1.09 K/mm3 (4.00-11.30)
[2024-10-30 10:22] LABS: Platelet Count 7 K/mm3 (150-400)
[2024-10-30 10:52] LABS: Albumin, Blood 3.5 g/dL (3.4-5.0); Albumin/Globulin Ratio 1.2 (0.8-1.8); Bilirubin, Total 1.7 mg/dL (0.1-1.0); Bun/Creatinine Ratio 18.5 (12.0-20.0); Calcium, Blood 8.8 mg/dL (8.5-10.1); Creatinine, Blood 0.49 mg/dL (0.40-1.00); Globulin, Blood 2.8 g/dL (2.2-4.0); Potassium, Blood 3.5 mmol/L (3.5-5.5); Total Protein, Blood 6.3 g/dL (6.4-8.2)
[2024-10-31] VITALS (8 sets, daily range): BP systolic 102–123; BP diastolic 61–67
[~2024-10-31 08:55] MED LIST changes: +NS 250 ML IV SCH
[2024-10-31 15:15] LABS: Amylase, Blood 36 U/L (25-115)
--- NOTE | 2024-10-31 17:04 | NUR ---
Lab results from today faxed to Dr. Emmanuel's office.
== END 2024-10-31 18:38 | disposition home or self-care (01) ==
LOC: ATC 08:55
PROVIDERS: Nurse Practitioner
DX: C91.02 Acute lymphoblastic leukemia, in relapse (principal); D61.818 Other pancytopenia; F32.9 Major depressive disorder, single episode, unspecified; K21.9 Gastro-esophageal reflux disease without esophagitis; Z79.899 Other long term (current) drug therapy; Z88.8 Allergy status to other drugs, medicaments and biological substances
CPT/HCPCS: 36430; 36592; 80053; 82150; 83690; 85025; 86850; 86900; 86901; 86920; J7050; P9035; P9040

== ENCOUNTER 2024-11-05 05:02 | Day surgery (SDC) | payer OTHER ==
[2024-11-03 11:10] VITALS: BP 121/59
[2024-11-03 12:02] LABS: Hematocrit 25.3 % (33.0-51.0); Hemoglobin 8.6 g/dL (11.5-16.0); Mean Corpuscular HGB 32.6 pg (26.0-34.0); Mean Corpuscular Volume 96 fL (80-100); RDW Coefficient Variation 22.1 % (11.7-14.2); RDW Standard Deviation 74.9 fL (35.1-46.3); Red Blood Cell Count 2.64 M/mm3 (3.80-5.20); White Blood Cell Count 1.78 K/mm3 (4.00-11.30)
[2024-11-03 12:14] LABS: Platelet Count 9 K/mm3 (150-400)
[2024-11-03 12:28] LABS: BAND PERCENT MAN 6 % (0-8); BASOPHILS PERCENT MAN 0 % (0-2); EOSINOPHILS ABSOLUTE MAN 0.24 K/mm3 (0.00-0.68); EOSINOPHILS PERCENT MAN 14 % (0-6); LYMPHOCYTES ABSOLUTE MAN 0.07 K/mm3 (0.84-5.20); LYMPHOCYTES PERCENT MAN 4 % (21-46); MONOCYTES ABSOLUTE MAN 0.03 K/mm3 (0.16-1.47); MONOCYTES PERCENT MAN 2 % (4-13); NEUTROPHILS ABSOLUTE MAN 1.42 K/mm3 (1.96-9.15); SEG NEUTROPHILS PERCENT MAN 74 % (41-73); TOTAL CELLS COUNTED 50
[2024-11-03 12:30] LABS: Albumin, Blood 3.4 g/dL (3.4-5.0); Albumin/Globulin Ratio 1.2 (0.8-1.8); Bilirubin, Total 1.8 mg/dL (0.1-1.0); Bun/Creatinine Ratio 16.2 (12.0-20.0); Calcium, Blood 9.1 mg/dL (8.5-10.1); Creatinine, Blood 0.56 mg/dL (0.40-1.00); Globulin, Blood 2.9 g/dL (2.2-4.0); Potassium, Blood 3.8 mmol/L (3.5-5.5); Total Protein, Blood 6.3 g/dL (6.4-8.2)
--- NOTE | 2024-11-04 13:07 | NUR ---
Pt canceled her appointment today for platlets.
== END 2024-11-05 23:00 | disposition home or self-care (01) ==
LOC: ATC 05:02
PROVIDERS: Nurse Practitioner
DX: C91.02 Acute lymphoblastic leukemia, in relapse (principal); K21.9 Gastro-esophageal reflux disease without esophagitis; F32.A Depression, unspecified; M81.0 Age-related osteoporosis without current pathological fracture; Z79.899 Other long term (current) drug therapy; Z88.8 Allergy status to other drugs, medicaments and biological substances
CPT/HCPCS: 36592; 80053; 85025; 86900; 86901

== ENCOUNTER 2024-11-07 01:19 | Day surgery (SDC) | payer OTHER ==
[2024-11-06 09:52] VITALS: BP 113/74
[2024-11-06 10:48] LABS: Hematocrit 25.1 % (33.0-51.0); Hemoglobin 8.5 g/dL (11.5-16.0); Mean Corpuscular HGB 32.8 pg (26.0-34.0); Mean Corpuscular HGB Conc 33.9 g/dL (31.5-36.5); Mean Corpuscular Volume 97 fL (80-100); RDW Coefficient Variation 21.6 % (11.7-14.2); RDW Standard Deviation 75.1 fL (35.1-46.3); Red Blood Cell Count 2.59 M/mm3 (3.80-5.20)
[2024-11-06 11:08] LABS: Albumin, Blood 3.4 g/dL (3.4-5.0); Albumin/Globulin Ratio 1.3 (0.8-1.8); Bilirubin, Total 1.6 mg/dL (0.1-1.0); Bun/Creatinine Ratio 18.7 (12.0-20.0); Calcium, Blood 8.6 mg/dL (8.5-10.1); Creatinine, Blood 0.48 mg/dL (0.40-1.00); Globulin, Blood 2.7 g/dL (2.2-4.0); Total Protein, Blood 6.1 g/dL (6.4-8.2)
[2024-11-06 11:57] LABS: White Blood Cell Count 0.91 K/mm3 (4.00-11.30)
[2024-11-06 11:58] LABS: Platelet Count 8 K/mm3 (150-400)
[2024-11-06 12:05] LABS: BAND PERCENT MAN 20 % (0-8); BASOPHILS PERCENT MAN 0 % (0-2); EOSINOPHILS ABSOLUTE MAN 0.36 K/mm3 (0.00-0.68); EOSINOPHILS PERCENT MAN 40 % (0-6); MONOCYTES ABSOLUTE MAN 0.03 K/mm3 (0.16-1.47); MONOCYTES PERCENT MAN 4 % (4-13); SEG NEUTROPHILS PERCENT MAN 36 % (41-73); TOTAL CELLS COUNTED 25
[~2024-11-07 01:19] MED LIST changes: -NS 250 ML IV SCH
[2024-11-07] MEDS ORDERED: NS 250 ML IV SCH (06:45)
[2024-11-07 14:40] VITALS: BP 115/71
[2024-11-07 15:22] VITALS: BP 119/66
[2024-11-07 16:02] VITALS: BP 107/60
== END 2024-11-07 16:04 | disposition home or self-care (01) ==
LOC: ATC 01:19
PROVIDERS: Nurse Practitioner
DX: C91.02 Acute lymphoblastic leukemia, in relapse (principal); D61.818 Other pancytopenia; K21.9 Gastro-esophageal reflux disease without esophagitis; G47.30 Sleep apnea, unspecified; M25.572 Pain in left ankle and joints of left foot; S93.402A Sprain of unspecified ligament of left ankle, initial encounter; S90.122A Contusion of left lesser toe(s) without damage to nail, initial encounter; Z79.899 Other long term (current) drug therapy; Z79.52 Long term (current) use of systemic steroids; Z79.85 Long-term (current) use of injectable non-insulin antidiabetic drugs; Z88.8 Allergy status to other drugs, medicaments and biological substances; W01.0XXA Fall on same level from slipping, tripping and stumbling without subsequent striking against object, initial encounter
CPT/HCPCS: 36430; 36592; 73610; 73630; 80053; 85025; 86900; 86901; 99283-25; J7050; P9037

== ENCOUNTER 2024-11-07 11:01 | Emergency (ER) | payer OTHER ==
[~2024-11-07] VITALS: Ht 165.1 cm; Wt 88.5 kg
[2024-11-07 11:12] VITALS: BP 122/72
== END 2024-11-07 14:03 | disposition home or self-care (01) ==
LOC: ER 11:01
DX: S93.402A Sprain of unspecified ligament of left ankle, initial encounter (principal); S90.122A Contusion of left lesser toe(s) without damage to nail, initial encounter; W01.0XXA Fall on same level from slipping, tripping and stumbling without subsequent striking against object, initial encounter; Z79.899 Other long term (current) drug therapy
CPT/HCPCS: 73610; 73630; 99283-25

== ENCOUNTER 2024-11-13 00:51 | Day surgery (SDC) | payer OTHER ==
[2024-11-13 09:31] VITALS: BP 114/66
[2024-11-13 10:12] LABS: Hematocrit 20.1 % (33.0-51.0); Hemoglobin 6.7 g/dL (11.5-16.0); Mean Corpuscular HGB 32.7 pg (26.0-34.0); Mean Corpuscular HGB Conc 33.3 g/dL (31.5-36.5); Mean Corpuscular Volume 98 fL (80-100); RDW Coefficient Variation 22.5 % (11.7-14.2); RDW Standard Deviation 77.8 fL (35.1-46.3); Red Blood Cell Count 2.05 M/mm3 (3.80-5.20); White Blood Cell Count 1.52 K/mm3 (4.00-11.30)
[2024-11-13 10:29] LABS: Platelet Count 10 K/mm3 (150-400)
[2024-11-13 10:30] LABS: Albumin, Blood 3.2 g/dL (3.4-5.0); Albumin/Globulin Ratio 1.2 (0.8-1.8); Bilirubin, Total 1.2 mg/dL (0.1-1.0); Bun/Creatinine Ratio 14.3 (12.0-20.0); Calcium, Blood 8.6 mg/dL (8.5-10.1); Creatinine, Blood 0.49 mg/dL (0.40-1.00); Globulin, Blood 2.7 g/dL (2.2-4.0); Potassium, Blood 3.8 mmol/L (3.5-5.5); Total Protein, Blood 5.9 g/dL (6.4-8.2)
[2024-11-13 10:39] LABS: BAND PERCENT MAN 2 % (0-8); BASOPHILS PERCENT MAN 0 % (0-2); EOSINOPHILS ABSOLUTE MAN 0.24 K/mm3 (0.00-0.68); EOSINOPHILS PERCENT MAN 16 % (0-6); LYMPHOCYTES ABSOLUTE MAN 0.21 K/mm3 (0.84-5.20); LYMPHOCYTES PERCENT MAN 14 % (21-46); MONOCYTES PERCENT MAN 0 % (4-13); NEUTROPHILS ABSOLUTE MAN 1.06 K/mm3 (1.96-9.15); SEG NEUTROPHILS PERCENT MAN 68 % (41-73); TOTAL CELLS COUNTED 50
== END 2024-11-13 09:31 | disposition home or self-care (01) ==
LOC: ATC 00:51
PROVIDERS: Nurse Practitioner
DX: C91.02 Acute lymphoblastic leukemia, in relapse (principal); K21.9 Gastro-esophageal reflux disease without esophagitis; Z79.899 Other long term (current) drug therapy; Z88.8 Allergy status to other drugs, medicaments and biological substances
CPT/HCPCS: 36592; 80053; 85025

== ENCOUNTER 2024-11-20 04:03 | Day surgery (SDC) | payer OTHER ==
[2024-11-17 14:28] VITALS: BP 127/80
[2024-11-17 15:20] LABS: Hematocrit 21.6 % (33.0-51.0); Hemoglobin 7.2 g/dL (11.5-16.0); Mean Corpuscular HGB 33.5 pg (26.0-34.0); Mean Corpuscular HGB Conc 33.3 g/dL (31.5-36.5); Mean Corpuscular Volume 101 fL (80-100); RDW Coefficient Variation 23.3 % (11.7-14.2); RDW Standard Deviation 83.1 fL (35.1-46.3); Red Blood Cell Count 2.15 M/mm3 (3.80-5.20); White Blood Cell Count 1.15 K/mm3 (4.00-11.30)
[2024-11-17 15:31] LABS: Albumin, Blood 3.5 g/dL (3.4-5.0); Albumin/Globulin Ratio 1.3 (0.8-1.8); Bilirubin, Total 1.9 mg/dL (0.1-1.0); Bun/Creatinine Ratio 22.1 (12.0-20.0); Calcium, Blood 8.6 mg/dL (8.5-10.1); Creatinine, Blood 0.45 mg/dL (0.40-1.00); Globulin, Blood 2.6 g/dL (2.2-4.0); Potassium, Blood 3.9 mmol/L (3.5-5.5); Total Protein, Blood 6.1 g/dL (6.4-8.2)
[2024-11-17 15:32] LABS: Platelet Count 7 K/mm3 (150-400)
[2024-11-17 16:22] LABS: BASOPHILS PERCENT MAN 0 % (0-2); EOSINOPHILS ABSOLUTE MAN 0.18 K/mm3 (0.00-0.68); EOSINOPHILS PERCENT MAN 16 % (0-6); LYMPHOCYTES ABSOLUTE MAN 0.11 K/mm3 (0.84-5.20); LYMPHOCYTES PERCENT MAN 10 % (21-46); MONOCYTES ABSOLUTE MAN 0.02 K/mm3 (0.16-1.47); MONOCYTES PERCENT MAN 2 % (4-13); NEUTROPHILS ABSOLUTE MAN 0.82 K/mm3 (1.96-9.15); SEG NEUTROPHILS PERCENT MAN 72 % (41-73); TOTAL CELLS COUNTED 50
--- NOTE | 2024-11-18 10:59 | NUR ---
Pt called and canceled her appointment for today. She reports she is not feeling well.
[2024-11-20] VITALS (9 sets, daily range): BP systolic 100–118; BP diastolic 56–74
[~2024-11-20 04:03] MED LIST changes: +NS 250 ML IV SCH
[2024-11-20] MEDS ORDERED: NS 250 ML IV SCH (06:55)
== END 2024-11-20 18:55 ==
LOC: ATC 04:03
PROVIDERS: Nurse Practitioner
DX: C91.02 Acute lymphoblastic leukemia, in relapse (principal); D64.9 Anemia, unspecified; K21.9 Gastro-esophageal reflux disease without esophagitis; G47.30 Sleep apnea, unspecified; Z88.8 Allergy status to other drugs, medicaments and biological substances; Z79.899 Other long term (current) drug therapy
CPT/HCPCS: 36430; 36592; 80053; 85025; 86850; 86900; 86901; 86920; J7050; P9016; P9035

== ENCOUNTER 2024-11-25 07:37 | Day surgery (SDC) | payer OTHER ==
[2024-11-24 14:40] VITALS: BP 126/71
[2024-11-24 15:30] LABS: Hematocrit 23.5 % (33.0-51.0); Hemoglobin 8.1 g/dL (11.5-16.0); Mean Corpuscular HGB 33.3 pg (26.0-34.0); Mean Corpuscular HGB Conc 34.5 g/dL (31.5-36.5); Mean Corpuscular Volume 97 fL (80-100); RDW Standard Deviation 74.4 fL (35.1-46.3); Red Blood Cell Count 2.43 M/mm3 (3.80-5.20)
[2024-11-24 15:31] LABS: BASOPHILS ABSOLUTE AUTO 0.01 K/mm3 (0.00-0.23); BASOPHILS PERCENT AUTO 2 % (0-2); EOSINOPHILS ABSOLUTE AUTO 0.09 K/mm3 (0.00-0.68); EOSINOPHILS PERCENT AUTO 14 % (0-6); IMMATURE GRAN ABSOLUTE AUTO 0.02 K/mm3 (0.00-0.10); IMMATURE GRAN PERCENT AUTO 3 % (0-1); LYMPHOCYTES ABSOLUTE AUTO 0.07 K/mm3 (0.84-5.20); LYMPHOCYTES PERCENT AUTO 11 % (21-46); MONOCYTES ABSOLUTE AUTO 0.06 K/mm3 (0.16-1.47); MONOCYTES PERCENT AUTO 9 % (4-13); NEUTROPHILS ABSOLUTE AUTO 0.39 K/mm3 (1.96-9.15); NEUTROPHILS PERCENT AUTO 61 % (41-73)
[2024-11-24 15:34] LABS: Platelet Count 7 K/mm3 (150-400); White Blood Cell Count 0.64 K/mm3 (4.00-11.30)
[2024-11-24 15:40] LABS: Albumin, Blood 3.4 g/dL (3.4-5.0); Albumin/Globulin Ratio 1.3 (0.8-1.8); Bun/Creatinine Ratio 15.5 (12.0-20.0); Calcium, Blood 8.6 mg/dL (8.5-10.1); Creatinine, Blood 0.52 mg/dL (0.40-1.00); Globulin, Blood 2.6 g/dL (2.2-4.0); Potassium, Blood 3.4 mmol/L (3.5-5.5)
[2024-11-25 10:38] VITALS: BP 130/74
[2024-11-25 10:57] VITALS: BP 115/59
[2024-11-25 11:59] VITALS: BP 116/63
== END 2024-11-25 12:02 | disposition home or self-care (01) ==
LOC: ATC 07:37
PROVIDERS: Nurse Practitioner
DX: C91.02 Acute lymphoblastic leukemia, in relapse (principal); D61.818 Other pancytopenia; K21.9 Gastro-esophageal reflux disease without esophagitis; F32.A Depression, unspecified; Z79.899 Other long term (current) drug therapy; Z88.8 Allergy status to other drugs, medicaments and biological substances
CPT/HCPCS: 36430; 36592; 80053; 85025; 86900; 86901; J7050; P9037